=== PATIENT | male | born 1990 | race Caucasian/White ===

== ENCOUNTER 2020-12-25 22:03 | Emergency (ER) | payer OTHER ==
[~2020-12-25] VITALS: Ht 175.3 cm; Wt 79.4 kg
== END 2020-12-25 23:02 | disposition home or self-care (01) ==
LOC: ER 22:03
DX: S61.220A Laceration with foreign body of right index finger without damage to nail, initial encounter (principal); W26.0XXA Contact with knife, initial encounter; Y93.89 Activity, other specified; Y92.090 Kitchen in other non-institutional residence as the place of occurrence of the external cause; Y99.8 Other external cause status

== ENCOUNTER 2021-02-17 21:26 | Inpatient (IN) | payer OTHER ==
[~2021-02-17] VITALS: Ht 182.9 cm; Wt 113.4 kg
== END 2021-02-24 14:32 | disposition home or self-care (01) | DRG 339 ==
LOC: ER 21:26 → O/R 02-18 01:46 → SEC-K 02-18 01:46 → O/R 02-18 14:00 → SURH 02-18 17:51
PROVIDERS: ADMIT Surgery; ATTEND Surgery
PROC: 0W3F4ZZ Control Bleeding in Abdominal Wall, Percutaneous Endoscopic Approach (ICD-10-PCS; 2021-02-18)
PROC: BW2110Z Computerized Tomography (CT Scan) of Abdomen and Pelvis using Low Osmolar Contrast, Unenhanced and Enhanced (ICD-10-PCS; 2021-02-18)
PROC: 0W9F40Z Drainage of Abdominal Wall with Drainage Device, Percutaneous Endoscopic Approach (ICD-10-PCS; 2021-02-18)
PROC: 0DTJ4ZZ Resection of Appendix, Percutaneous Endoscopic Approach (ICD-10-PCS; principal; 2021-02-18 05:00)
PROC: BW2110Z Computerized Tomography (CT Scan) of Abdomen and Pelvis using Low Osmolar Contrast, Unenhanced and Enhanced (ICD-10-PCS; 2021-02-22)
DX: K35.33 Acute appendicitis with perforation, localized peritonitis, and gangrene, with abscess (principal); D62 Acute posthemorrhagic anemia; I97.620 Postprocedural hemorrhage of a circulatory system organ or structure following other procedure; Z20.822 Contact with and (suspected) exposure to COVID-19; Y83.8 Other surgical procedures as the cause of abnormal reaction of the patient, or of later complication, without mention of misadventure at the time of the procedure; Y92.238 Other place in hospital as the place of occurrence of the external cause